=== PATIENT | female | born 1950 | race Caucasian/White ===

== ENCOUNTER → 2016-05-23 | Outpatient (CLI) | payer MEDICARE, BC ==
[~2016-05-23] MED LIST: ALLEGRA180 MG PO; CARAFATE1 GM PO; CENTRUM COMPLE1 EACH PO; FERGON325 M1 PO; FLONASE 50 MCG/16 GM NOSE; GLIPIZIDE5 MG PO; GLUCOPHAGE1000 MG PO; GLUCOTROL 5MG XL5 MG PO; LANTUS (IN100 UNIT/M SUB-Q; LASIX20 MG PO; LEVOTHROID (S200 MCG PO; LEVOTHROID(SY175 MCG PO; PREVACID30 M1 PO; PRILOSEC20 MG PO; PROTONIX40 MG PO; SYNTHROID175 MCG PO; SYSTANE 0.3-0.1 EACH OPHTH; THERAGRAN-M1 TAB PO; VASOTEC5 MG PO; VITAMIN A8000 UNIT PO; VITAMIN C PO; VITAMIN D250000 UNIT PO; VITAMIN E PO; ZITHROMAX250 MG
== END | disposition disaster alternative care site (69) ==
LOC: GBCOE 08:44
DX: Z12.31 Encounter for screening mammogram for malignant neoplasm of breast (principal); Z98.890 Other specified postprocedural states
CPT/HCPCS: G0202

== ENCOUNTER → 2016-11-22 | Outpatient (CLI) | payer MEDICARE, BC ==
--- NOTE | ~2016-11-22 | ENPV ---
Vascular Lower Extremities DVT Study Procedure Demographics Patient Name ANNEMARIE BRADY Date of Study 11/22/2016 Patient Number [id number] Gender Female Date of 1950 Age 66 Visit Number [id number] Height Accession Number [id number] Weight Room Number BSA BMI Referring David Long MD Interpreting Mekhi Washburn MD Physician Vic Long MD Physician Physician Ordering Physician David Du MD Model And Pattern Supervisor William Maguire RVT Conclusions Summary No evidence of deep vein thrombosis in the lower extremities bilaterally . Procedure Type of Study: Veins:Lower Extremities DVT Study, Venous Duplex Lower Extremity Bilateral. Indications for Study:Swelling. Appropriate Use Criteria:9 Patient Status:Routine. Study Location:Vascular Lab. Technical Quality:Adequate visualization. Velocities are measured in cm/s ; Diameters are measured in cm Right Lower Extremities DVT Study Measurements Right 2D and Doppler Measurements + + + + +------+------+ + !Location !Visualized!Compressibility!Thrombosis!Signal!Reflux!Reflux ! ! ! ! ! ! ! !(sec) ! + + + + +------+------+ + !GSV Thigh !Yes !Yes !None !Phasic!No ! ! + + + + +------+------+ + !Common !Yes !Yes !None !Phasic!No ! ! !Femoral ! ! ! ! ! ! ! + + + + +------+------+ + !Prox !Yes !Yes !None !Phasic!No ! ! !Femoral ! ! ! ! ! ! ! + + + + +------+------+ + !Mid Femoral!Yes !Yes !None !Phasic!No ! ! + + + + +------+------+ + !Dist !Yes !Yes !None !Phasic!No ! ! !Femoral ! ! ! ! ! ! ! + + + + +------+------+ + !Popliteal !Yes !Yes !None !Phasic!No ! ! + + + + +------+------+ + !Gastroc !Yes !Yes !None !Phasic!No ! ! + + + + +------+------+ + !PTV !Yes !Yes !None !Phasic!No ! ! + + + + +------+------+ + !Peroneal !Yes !Yes !None !Phasic!No ! ! + + + + +------+------+ + Left Lower Extremities DVT Study Measurements Left 2D and Doppler Measurements + + + + +------+------+ + !Location !Visualized!Compressibility!Thrombosis!Signal!Reflux!Reflux ! ! ! ! ! ! ! !(sec) ! + + + + +------+------+ + !GSV Thigh !Yes !Yes !None !Phasic!No ! ! + + + + +------+------+ + !Common !Yes !Yes !None !Phasic!No ! ! !Femoral ! ! ! ! ! ! ! + + + + +------+------+ + !Prox !Yes !Yes !None !Phasic!No ! ! !Femoral ! ! ! ! ! ! ! + + + + +------+------+ + !Mid Femoral!Yes !Yes !None !Phasic!No ! ! + + + + +------+------+ + !Dist !Yes !Yes !None !Phasic!No ! ! !Femoral ! ! ! ! ! ! ! + + + + +------+------+ + !Popliteal !Yes !Yes !None !Phasic!No ! ! + + + + +------+------+ + !Gastroc !Yes !Yes !None !Phasic!No ! ! + + + + +------+------+ + !PTV !Yes !Yes !None !Phasic!No ! ! + + + + +------+------+ + !Peroneal !Yes !Yes !None !Phasic!No ! ! + + + + +------+------+ + Impressions Right Impression Edema visualized in calf. Left Impression Edema visualized in calf. Signature dtt: [id number] dtd: 11/22/16 [id number] Physician Self Halie
== END | disposition disaster alternative care site (69) ==
LOC: GCAR 08:59
DX: M79.604 Pain in right leg (principal); M79.605 Pain in left leg; M79.89 Other specified soft tissue disorders; D50.0 Iron deficiency anemia secondary to blood loss (chronic); I78.0 Hereditary hemorrhagic telangiectasia; K31.811 Angiodysplasia of stomach and duodenum with bleeding; K90.9 Intestinal malabsorption, unspecified; R60.0 Localized edema